=== PATIENT | male | born 1995 | race Caucasian/White ===

== ENCOUNTER → 2024-11-17 | Outpatient (CLI) | payer BC, SELFPAY ==
[2024-11-17 08:33] LABS: Collection Type, Urine Clean Catch; Squamous Epithelial Cell,Urine 0 /hpf (0-5)
[2024-11-17 09:13] LABS: Basophils # (Auto) 0.1 Thou/mm3 (0.0-0.2); Basophils % (Auto) 1 % (0-2.5); Eosinophils # (Auto) 0.4 Thou/mm3 (0.0-0.5); Eosinophils % (Auto) 5 % (0-10); Hematocrit 45.3 % (41.0-53.0); Immature Granulocytes % (Auto) 1 % (0-0); Immature Granulocytes Auto 0.05 Thou/mm3 (0.00-0.00); Lymphocytes % (Auto) 23 % (10-50); Mean Corpuscular HGB Conc 33.1 g/dl (31.0-37.0); Mean Corpuscular Hemoglobin 28.9 pg (25.0-35.0); Mean Corpuscular Volume 87 fL (80-100); Monocytes # (Auto) 0.7 Thou/mm3 (0.0-0.8); Monocytes % (Auto) 8 % (0-12); Neutrophils # (Auto) 5.3 Thou/mm3 (1.8-7.7); Neutrophils % (Auto) 63 % (37-80); Nucleated Red Blood Cell % 0 /100 WBC (0); Platelet Count 308 Thou/mm3 (140-440); RDW Standard Deviation 41.5 fL (35.1-43.9); Red Blood Count 5.19 Miln/mm3 (4.50-5.90); White Blood Count 8.4 Thou/mm3 (3.8-10.6)
[2024-11-17 09:38] LABS: Alanine Aminotransferase 24 U/L (10-49); Albumin, Serum 4.9 gm/dL (3.5-5.0); Albumin/Globulin Ratio 1.8 (1.2-2.2); Alkaline Phosphatase 76 U/L (46-116); Anion Gap 9 (7-16); Aspartate Amino Transferase 32 U/L (0-34); BUN/Creatinine Ratio 12 Ratio (12-20); Bilirubin,Total 0.4 mg/dL (0.3-1.2); Blood Urea Nitrogen 12 mg/dL (9-23); Calcium 9.5 mg/dL (8.3-10.6); Calcium (Corrected) 9.5 mg/dL (8.5-10.1); Carbon Dioxide 27.7 mMol/L (20.0-31.0); Cardiac Risk Estimate 5.3 RATIO (4.0-6.7); Chloride 103 mMol/L (98-107); Cholesterol 211 mg/dL (132-200); Globulin 2.8 gm/dL (2.3-3.5); Glucose 101 mg/dL (74-106); HDL Cholesterol 40 mg/dL (40-60); LDL Cholesterol,Calculated 152 mg/dL (0-130); Osmolality,Calculated 279 (275-295); Potassium 3.9 mMol/L (3.4-5.1); Sodium 140 mMol/L (136-145); Thyroid Stimulating Hormone 1.31 uIU/mL (0.55-4.78); Total Protein 7.7 gm/dL (5.7-8.2); Triglycerides 93 mg/dL (30-150); eGFR > 60 See Note
[2024-11-17 09:58] LABS: Syphilis Reactive (Nonreactive)
[2024-11-17 09:59] LABS: MHATP/TP-PA* See Sep Rpt
[2024-11-17 10:05] LABS: Hepatitis A Antibody IgM Non Reactive (Non React); Hepatitis B Core Antibody IgM Non Reactive (Non React); Hepatitis B Surface Antigen Non Reactive (Non React); Hepatitis C Antibody Non Reactive (Non React)
[2024-11-17 10:15] LABS: Bilirubin,Urine Negative (Negative); Blood,Urine Negative (Negative); Clarity,Urine Clear (Clear/Hazy); Color,Urine Colorless (Lt Yel-Yel); Glucose, Urine Negative (Negative); Ketones,Urine Negative (Negative); Leukocyte Esterase,Urine Negative (Negative); Nitrite,Urine Negative (Negative); PH,Urine 6.5 (5.0-7.0); Protein,Urine Negative (Neg - Trace); RBC,Urine 1 /hpf (0-3); Specific Gravity,Urine 1.007 (1.001-1.035); Urobilinogen,Urine Negative mg/dL (0.0-1.0); WBC,Urine < 1 /hpf (0-5)
[2024-11-17 10:18] LABS: Glucose Estimated Average 100 mg/dL (80-131); Hemoglobin A1C 5.1 % Hgb (4.8-6.0)
[2024-11-17 12:57] LABS: HIV (1&2) Antibody Rapid Non-Reactive
[2024-11-17 13:28] LABS: Chlamydia trachomatis PCR Negative (Not Detect); Neisseria Gonorrhoeae DNA PCR Negative (Not Detect); Trichomonas Negative (Negative)
== END | disposition home or self-care (01) ==
PROVIDERS: PCP Family Medicine; Referring Provider Family Medicine; Visit Provider Family Medicine
DX: Z00.00 Encounter for general adult medical examination without abnormal findings (principal); F41.9 Anxiety disorder, unspecified; Z11.3 Encounter for screening for infections with a predominantly sexual mode of transmission
CPT/HCPCS: 36415; 80053; 80061; 80074; 81001; 83036; 84443; 85025; 86703; 86780; 87491; 87591; 87661

== ENCOUNTER → 2025-05-05 | Outpatient (CLI) | payer BC, SELFPAY ==
--- NOTE | 2025-05-05 | XR_ITS ---
Examination: Lumbar spine 7 views TECHNIQUE: AP, lateral, standing lateral flexion, standing lateral extension, coned lateral lower lumbar spine, LEE, [place] 7 views Date and time: May 05, 2025 1149 hours INDICATIONS: Lower back pain beginning 2 months ago FINDINGS: Adequate alignment lumbar vertebral bodies Mild disc narrowing L5-S1 Mildly reduced range of motion between flexion and extension No spondylolisthesis IMPRESSION: Early degenerative disc disease L5-S1
== END | disposition home or self-care (01) ==
PROVIDERS: PCP Family Medicine; Referring Provider Family Medicine; Visit Provider Family Medicine
DX: M51.370 Other intervertebral disc degeneration, lumbosacral region with discogenic back pain only (principal)
CPT/HCPCS: 72114

== ENCOUNTER 2025-07-22 07:43 | Emergency (ER) | payer BC, SELFPAY ==
[2025-07-22 07:52] VITALS: BP 145/81; PULSE 64; RESP 20; TEMP 36.3; O2SAT 100; BMI 26.6
--- NOTE | 2025-07-22 08:00 | XR_ITS ---
Examination: CT abdomen with intravenous contrast CT pelvis with intravenous contrast 2-D coronal reconstructions 2-D sagittal reconstructions Date and time of exam:July 22, 2025 0918 hours INDICATIONS: Lower abdominal pain with diarrhea onset today. CTDI: vol (mGy) 8.16 DLP: (mGycm) 508 Technique: Multiple axial sections of the abdomen and pelvis have been obtained. 64 slice high-resolution scanner used. 3 mm axial sections have been obtained, post intravenous injection 60 cc [id number] 2-D sagittal, coronal reconstructions obtained. Low dose protocols were performed. One or more of the following dose reduction techniques were used; automated exposure control, adjustment of the mA and/or KV according to patient size, use of iterative reconstruction technique. Findings: 8mm right lobe liver cyst Contracted gallbladder. Spleen is not enlarged No pancreatic or adrenal mass. No renal or ureteral calculi, no hydronephrosis Aorta normal size Normal appendix The entire colon especially transverse colon show mild wall thickening Colonic diverticulosis Urinary bladder intact No prostatomegaly The osseous structures are intact L5-S1 5 mm central lumbar disc protrusion IMPRESSION: Diffuse mild nonspecific colitis pattern Normal appendix L5-S1 5 mm central lumbar disc protrusion
--- NOTE | 2025-07-22 08:06 | PD.EDRME ---
Rapid Medical Screening Exam E Arrival date/time: 07/22/25 07:43 29-year-old male presents to the Emergency Department with reports of nausea vomiting abdominal pain as well as diarrhea which began last night Chief Complaint: Abdominal Pain Time Seen by Provider: 07/22/25 07:51 Vital signs: Vital Signs Temperature 97.4 F 07/22/25 07:52 Pulse Rate 64 07/22/25 07:52 Respiratory Rate 20 07/22/25 07:52 Blood Pressure 145/81 H 07/22/25 07:52 Pulse Oximetry (%) 100 07/22/25 07:52 Oxygen Delivery Method Room Air 07/22/25 07:52
[2025-07-22 08:45] LABS: Basophils # (Auto) 0.1 Thou/mm3 (0.0-0.2); Basophils % (Auto) 0 % (0-2.5); Eosinophils # (Auto) 0.1 Thou/mm3 (0.0-0.5); Eosinophils % (Auto) 1 % (0-10); Hematocrit 45.1 % (41.0-53.0); Hemoglobin 15.4 g/dL (13.5-16.0); Immature Granulocytes Auto 0.08 Thou/mm3 (0.00-0.00); Lymphocytes # (Auto) 2.3 Thou/mm3 (1.0-4.8); Lymphocytes % (Auto) 14 % (10-50); Mean Corpuscular HGB Conc 34.1 g/dl (31.0-37.0); Mean Corpuscular Hemoglobin 29.6 pg (25.0-35.0); Mean Corpuscular Volume 87 fL (80-100); Monocytes # (Auto) 1.1 Thou/mm3 (0.0-0.8); Monocytes % (Auto) 6 % (0-12); Neutrophils # (Auto) 12.9 Thou/mm3 (1.8-7.7); Neutrophils % (Auto) 78 % (37-80); Nucleated Red Blood Cell # 0.00 Thou/mm3 (0.00-0.00); Nucleated Red Blood Cell % 0 /100 WBC (0); Platelet Count 312 Thou/mm3 (140-440); RDW Standard Deviation 39.8 fL (35.1-43.9); Red Blood Count 5.21 Miln/mm3 (4.50-5.90); White Blood Count 16.5 Thou/mm3 (3.8-10.6)
[2025-07-22] MEDS: METOCLOPRAMIDE INJ 5 MG/ML VIAL 2 ML 10 MG IVP (08:45)
[2025-07-22] MEDS: SODIUM CHLORIDE 0.9% 1000 ML 1,000 ML 999 ML IV (08:48)
--- NOTE | 2025-07-22 08:58 | XR_ITS ---
Examination: Abdomen sonogram, Limited Date and time of exam: July 22, 2025 0926 hours INDICATIONS: Onset epigastric pain today Technique: Real-time maharaj scale transabdominal sonographic images of the upper abdomen obtained. Findings: Normal gallbladder. Normal common bile duct 0.2 cm. Pancreatic head 2.1 cm Liver 14.7 cm fatty infiltration Normal hepatopedal portal venous flow Patent IVC IMPRESSION: Normal gallbladder Fatty infiltration throughout the liver no focal liver lesions
[2025-07-22 09:02] LABS: Alanine Aminotransferase 34 U/L (10-49); Albumin, Serum 4.5 gm/dL (3.5-5.0); Albumin/Globulin Ratio 1.6 (1.2-2.2); Alkaline Phosphatase 94 U/L (46-116); Amylase 169 U/L (30-118); Anion Gap 12 (7-16); Aspartate Amino Transferase 69 U/L (0-34); BUN/Creatinine Ratio 10 Ratio (12-20); Bilirubin,Total 0.9 mg/dL (0.3-1.2); Blood Urea Nitrogen 10 mg/dL (9-23); Calcium 9.9 mg/dL (8.3-10.6); Calcium (Corrected) 9.9 mg/dL (8.5-10.1); Carbon Dioxide 24.8 mMol/L (20.0-31.0); Chloride 103 mMol/L (98-107); Creatinine (Component) 1.0 mg/dL (0.6-1.3); Estimated Creatinine Clearance 110.0 mL/min (>60); Globulin 2.8 gm/dL (2.3-3.5); Glucose 172 mg/dL (74-106); Osmolality,Calculated 282 (275-295); Potassium 3.5 mMol/L (3.4-5.1); Sodium 140 mMol/L (136-145); Total Protein 7.3 gm/dL (5.7-8.2); eGFR > 60 See Note
--- NOTE | 2025-07-22 09:04 | EKG_ITS ---
[facility] Test Date: 2025-07-22 Pat Name: RIKKI MAGAÑA Department: Room: - Gender: Male Alcoholism Worker: : 1995 Requested By: Teofilo Jewell Order Number: [id number] Reading MD: Teofilo Jewell Measurements Intervals [place] Rate: 67 P: 52 AK: 152 QRS: 74 QRSD: 95 T: 50 QT: 395 QTc: 419 Interpretive Statements SINUS RHYTHM POSSIBLE LEFT ATRIAL ENLARGEMENT [-0.1mV P-WAVE IN V1/V2] No previous ECG available for comparison /store/S0/[id number]/ecg/[id number].pdf
[2025-07-22 09:12] LABS: Lipase 85 U/L (12-53)
[2025-07-22] MEDS: MG HYD/AL HYD/SIME (Maalox Reg) SUSP 30 ML UDC PO (09:28)
[2025-07-22] MEDS: HYDROmorphone INJ 2 MG/ML VIAL 0.5 MG IVP (09:29)
[2025-07-22 10:00] VITALS: BP 127/68; PULSE 70; RESP 18; TEMP 36.4; O2SAT 97
[2025-07-22 10:56] LABS: Collection Type, Urine Clean Catch; Squamous Epithelial Cell,Urine 0 /hpf (0-5)
[2025-07-22 11:14] LABS: Bacteria,Urine Rare; Bilirubin,Urine Negative (Negative); Blood,Urine Negative (Negative); Clarity,Urine Clear (Clear/Hazy); Color,Urine Lt-Yellow (Lt Yel-Yel); Culture Indicated,Urine Not Indicated; Glucose, Urine Negative (Negative); Ketones,Urine Trace (Negative); Leukocyte Esterase,Urine Negative (Negative); Nitrite,Urine Negative (Negative); PH,Urine 6.5 (5.0-7.0); Protein,Urine Negative (Neg - Trace); RBC,Urine 3 /hpf (0-3); Specific Gravity,Urine 1.035 (1.001-1.035); Urobilinogen,Urine Negative mg/dL (0.0-1.0); WBC,Urine 1 /hpf (0-5)
--- NOTE | 2025-07-22 11:32 | EDNOTE_ITS ---
ED Abdominal Pain RME/HPI General Chief Complaint: Abdominal Pain Stated complaint: SEVERE ABD PAIN 08/21 Time seen by provider: 07/22/25 07:51 Arrival date/time: 07/22/25 07:43 RME / HPI RME / HPI narrative: 07/22/25 07:43 29-year-old male presents to the Emergency Department with reports of nausea vomiting abdominal pain as well as diarrhea which began last night DR. EVERETT BOLIVAR ED EVALUATION 29 year old male with history of anxiety presents to the ED with complaints of abdominal pain beginning at 01:30 AM today. Described as aching in sensation that is located most across the upper abdomen, rating as severe. Followed by one episode of nonbloody diarrhea and passing gas. States his pain had improved after bowel movement and was able to go back to sleep. Reportedly was woken up at 06:00AM due to upper abdominal pain that was accompanied by nonbloody diarrhea. Though states pain at that time was worse and not improved after bowel movement or with Cyclobenzaprine. Denies eating any new or unusual foods for dinner last night. Denies fevers, chills, chest pain, cough, shortness of breath, nausea, vomiting, or urinary symptoms. Denies any abdominal surgeries or history of similar pain. Related Data Previous Rx's ?Medication ?Instructions ?Recorded aluminum-mag hydroxide-simethicone 15 ml PO QID PRN in digestion 07/22/25 200 mg-200 mg-20 mg/5 mL oral susp #3,000 mL (Maalox Advanced) dicyclomine 10 mg capsule 10 mg PO BID #20 caps famotidine 20 mg tablet (Pepcid) 20 mg PO QDAY #20 tab s 07/22/25 simethicone 250 mg capsule 250 mg PO BID PRN abdominal 07/22/25 distention #20 caps Allergies Allergy/AdvReac Type Severity Reaction Status Date / Time No Known Allergies Allergy Verified 07/22/25 07:46 Review of Systems Review of Systems Systems Reviewed: All systems reviewed, normal except as documented Past Medical History Past Medical History PSYCHO/SOCIAL: Positive Depression and Anxiety OTHER HISTORY: Positive Cancer (LEUKEMIA ALL) Family History FAMILY HISTORY: Positive Family Cancer (PT'S FATHER KIDNEY CANCER) Social History SMOKING STATUS: Never smoker ED Exam Narrative Physical exam: See MDM Course Quality Measures none Orders Category Date Time Status Bedside COVID-19 Antigen Test NOW Care 07/22/25 08:02 Completed Bedside Influenza A&B Antigen Test NOW Care 07/22/25 08:[address] Screening NOW Care 07/22/25 08:01 Completed EKG (ED ONLY) *Do not use* NOW Care 07/22/25 09:04 Completed Insert IV NOW Care 07/22/25 08:[address] abdomen pelvis w con Stat Exams 07/22/25 08:00 Completed EKG (ED Only) Stat Exams 07/22/25 09:04 Draft US gall bladder Stat Exams 07/22/25 08:58 Completed Amylase Stat Lab 07/22/25 08:25 Completed CBC Stat Lab 07/22/25 08:25 Completed Comprehensive Metabolic Panel Stat Lab 07/22/25 08:25 Completed Lipase Stat Lab 07/22/25 08:25 Completed UA, C/S IF [Urinalysis, C/S if Indicated] Stat Lab 07/22/25 10:51 Completed HYDROmorphone INJ [Dilaudid Inj] Med 07/22/25 09:15 Discontinued 0.5 mg IVP PRN Metoclopramide Inj [Reglan Inj] Med 07/22/25 08:00 Discontinued 10 mg IVP X1 ONE Ondansetron Inj [Zofran Inj] Med 07/22/25 09:02 Discontinued 4 mg IVP X1 ONE Sodium Chloride 0.9% 1000 ml [Ns] 1,000 ml Med 07/22/25 08:00 Discontinued IV 999 mls/hr mg Hyd/Al Hyd/Nika Susp [Maalox Susp] Med 07/22/25 09:04 Discontinued 30 ml PO X1 ONE Vital Signs Vital signs: Vital Signs Temperature 97.4 F 07/22/25 07:52 Pulse Rate 64 07/22/25 07:52 Respiratory Rate 20 07/22/25 07:52 Blood Pressure 145/81 H 07/22/25 07:52 Pulse Oximetry (%) 100 07/22/25 07:52 Oxygen Delivery Method Room Air 07/22/25 07:52 Abdominal Pain MDM MDM Narrative MDM Narrative:: This section includes all my notes and documentations, including HPI, PE, and ED course. Erasto Sheth MD ? HPI: 29 year old male with history of anxiety presents to the ED with complaints of abdominal pain beginning at 01:30 AM today. Described as aching in sensation that is located most across the upper abdomen, rating as severe. Followed by one episode of nonbloody diarrhea and passing gas. States his pain had improved and was able to go back to sleep. Reportedly was woken up at 06:00AM again with upper abdominal pain that was accompanied by nonbloody diarrhea. Though states pain at that time was worse and not improved with Cyclobenzaprine. Denies eating any new or unusual foods for dinner last night. Denies fevers, chills, chest pain, cough, shortness of breath, nausea, vomiting, or urinary symptoms. Denies any abdominal surgeries or history of similar pain. ? ROS: All negative except as documented in HPI. ? PE: GENERAL APPEARANCE:? alert and oriented x 4, well-developed, well-nourished VITALS: All vitals were reviewed and the pulse ox is % on room air, which is normal according to my interpretation. HEENT: Normocephalic, atraumatic; pupils equal, round, reactive to light; EOMI; mucous membranes pink, moist; oropharynx clear NECK: Supple LUNGS: CTABL; no wheezes, no rales, no rhonchi HEART: Regular rate, regular rhythm; normal S1, S2; no murmurs ABDOMEN: non distended; normal BS;? soft, mild to moderate tenderness in epigastrium right and left upper quadrants without guarding, no rebound; no masses, no organomegaly, no hernia?? BACK:? no CVA tenderness EXTREMITIES:? atraumatic; no edema NEUROLOGIC: awake; alert and oriented x4; cranial nerves II-XII grossly intact; no focal sensory or motor deficits PSYCHIATRIC:? appropriate mood and affect SKIN: warm, dry, normal color; no rashes I reviewed all diagnostic test results: My review of the abdomen/pelvis CT report is: no abnormality seen My review of the gallbladder US report is: No stones, no wall thickening My interpretation of the EKG @ 10:13h NSR, rate 67, normal axis, no ectopy, no acute ischemia. Blood tests and urine test: WBC 16.5, lipase 85, urinalysis negative for infection Covid/Influenza: Negative. ? At this point, diagnoses include: Abdominal pain, acute epigastric pain ? Treatment here included: Reglan, IV fluids, Maalox, Dilaudid ? On reassessment at 11:25h, patient reports significant improvement noted after medications. ? Recommended outpatient care. In spite of the patient's leukocytosis his exam is much improved. His vital signs are stable and normal. I gave this patient strict return as well as follow-up instructions and he voiced understanding and agreement. ? Based on my best medical judgment, made decision no further evaluation or treatment indicated at this time. Patient understands and agrees to the customized discharge instructions and printed, see below. ? Discharge instructions from Dr. Sheth: Today you are seen in the emergency department for abdominal pain. We performed many tests including blood tests, an EKG, an ultrasound of your gallbladder and a CT scan of your abdomen and pelvis. These test showed no acute pathology and they are very reassuring. However as we discussed, there are patients to come to the emergency department so early in their belly pain process that our tests are still normal. Please pay attention your body at home and if you feel like you are worsening in any way please return to the ER and we will repeat the tests. Occasionally belly pain patients will come back to the ER, we repeat the test and then we can see if there is a pathological process going on. You should follow-up with your primary care doctor within the next several days as well. Patient data External records reviewed:: [facility] previous records Clinical information provided by:: patient Social determinants that could affect healthcare access:: mental health Patient has the following chronic illnesses:: anxiety How is presenting disease/condition affected by chronic disease/condition?: uneffected by Evaluation data The following diagnostics were reviewed and interpreted by me:: lab results, radiology exam(s) and EKG tracing(s) Lab and/or radiology exams considered but not ordered:: None Interpretation Summary: See [facility] Medications / Prescriptions Medications or Prescriptions considered but not ordered:: None Medication administrations:: Medication Administration History Discontinued Medications Al Hydrox/Mg Hydrox/Simethicone (Mg Hyd/Al Hyd/Nika (Maalox Reg) Susp 30 Ml Udc) 30 ml PO X1 ONE Stop: 07/22/25 09:05 Last Admin: 07/22/25 09:28 Dose: 30 ml Documented By: GM Hydromorphone HCl (Hydromorphone Inj 2 Mg/Ml Vial) 0.5 mg IVP PRN KARLA Stop: 07/27/25 09:14 Last Admin: 07/22/25 09:29 Dose: 0.5 mg Documented By: BRAYAN Sodium Chloride (Ns) 1,000 mls @ 999 mls/hr IV .Q1H1M ONE Stop: 07/22/25 09:00 Last Infusion: 07/22/25 09:55 Dose: Infused Documented By: Admin: 07/22/25 08:48 Dose: 999 mls/hr Documented By: BRAYAN Metoclopramide HCl (Metoclopramide Inj 5 Mg/Ml Vial 2 Ml) 10 mg IVP X1 ONE; Protocol Stop: 07/22/25 08:01 Last Admin: 07/22/25 08:45 Dose: 10 mg Documented By: BRAYAN Ondansetron HCl (Ondansetron Inj 2 Mg/Ml Inj 2 Ml) 4 mg IVP X1 ONE; Protocol Stop: 07/22/25 09:03 Last Admin: 07/22/25 10:27 Dose: Not Given Documented By: BRAYAN Non-Admin Reason: Patient Refused See above Consultations Consultation(s) initiated? (list below): No Diagnosis Differential diagnosis abdominal pain: abdominal pain, acute appendicitis, calculus of kidney and gastroenteritis Most likely diagnosis given after review of the tests above:: Abd pain Acute epigastric abd pain Admission Indicated Admission indicated?: not indicated Admission Request Was there a request for admission?: No Disposition Plan Disposition Plan: Discharge Discharge Attestation Discharge Attestation: The patient and all family members were given an opportunity to ask questions and understood the discharge instructions. Discharge instructions specifically effects, indications for sooner follow up or return to the emergency department, and the expected course of current diagnosis. Patient condition: Stable Discharge Plan Plan Patient Disposition: HOME (Self Care) Discharge Disposition comment: Stable for discharge home Patient condition on transfer: Stable Prescriptions/Referrals Prescriptions/Med Rec: New famotidine [Pepcid] 20 mg tablet 20 mg PO QDAY Qty: 20 0RF alum-mag hydroxide-simeth [Maalox Advanced] 200-200-20 mg/5 mL suspension 15 ml PO QID PRN (Reason: indigestion) Qty: 3000 0RF Rx Instructions: administer between meals and at bedtime dicyclomine 10 mg capsule 10 mg PO BID Qty: 20 0RF simethicone 250 mg capsule 250 mg PO BID PRN (Reason: abdominal distention) Qty: 20 0RF Referrals: Freya Melchor MD [Primary Care Provider, Family Practice] - In 1 week Problem List Clinical Impression: Abdominal pain, Acute epigastric pain Patient/Caregiver Discharge Instructions Discharge Activity: activity as tolerated Diet Instructions: No spicy or greasy foods Education Materials: ED Pain, Acute, Uncertain Cause, ED Epigastric Pain (Uncertain Cause) Additional Instructions: Today you are seen in the emergency department for abdominal pain. We performed many tests including blood tests, an EKG, an ultrasound of your gallbladder and a CT scan of your abdomen and pelvis. These test showed no acute pathology and they are very reassuring. However as we discussed, there are patients to come to the emergency department so early in their belly pain process that our tests are still normal. Please pay attention your body at home and if you feel like you are worsening in any way please return to the ER and we will repeat the tests. Occasionally belly pain patients will come back to the ER, we repeat the test and then we can see if there is a pathological process going on. You should follow-up with your primary care doctor within the next several days as well. Print Language: Thai Stand Alone Forms: Donna Award Info., Patient Portal Info Letter
[2025-07-22 11:36] VITALS: BP 142/84; PULSE 67; RESP 15; TEMP 36.9; O2SAT 98
== END 2025-07-22 11:48 | disposition home or self-care (01) ==
PROVIDERS: Nurse Practitioner Primary Care; Emergency Provider Emergency Medicine; PCP Family Medicine
DX: R10.13 Epigastric pain (principal); R94.31 Abnormal electrocardiogram [ECG] [EKG]; D72.829 Elevated white blood cell count, unspecified
CPT/HCPCS: 36415; 74177; 76705; 80053; 81001; 82150; 83690; 85025; 87400; 87811; 93005; 96361; 96374; 96375; 99284; A4649; J1171; J2765; J7030; Q9967; A9270